=== PATIENT | male | born 2000 | race Caucasian/White ===

== ENCOUNTER 2020-09-01 09:20 | Emergency (ER) | payer BC ==
[~2020-09-01] VITALS: Ht 193 cm; Wt 194.1 kg
[2020-09-01 09:32] VITALS: BP 140/95
--- NOTE | 2020-09-01 09:51 | NUR ---
PT SWABBED FOR COVID, SAMPLE DROPPED OFF AT LAB WITH PAPERWORK Addendum: 09/01/20 at 1021 by CARLOS handed sample to pilot supervisor instead
--- NOTE | 2020-09-01 09:54 | NUR ---
DR. GAMA EVALUATING PT IN TENT
--- NOTE | 2020-09-01 09:55 | NUR ---
20/M WOKE UP THIS MORNING WITH MYALGIA, N/V, NASAL CONGESTION, CHILLS, SORE THROAT, FATIGUE, SLIGHT COUGH, AND MILD SOB. DENIES COVID POS CONTACTS. TACHYCARDIC WITH NORMAL RHYTHM, BUT APPEARS IN NO ACUTE DISTRESS. NORMAL WORK OF BREATHING. HX- DENIES NKA
--- NOTE | 2020-09-01 10:18 | NUR ---
Patient discharged with v/s stable. Written and verbal after care instructions given and explained. Patient alert, oriented and verbalized understanding of instructions. Ambulatory with steady gait. All questions addressed prior to discharge. ID band removed. Patient advised to follow up with PMD. Rx of motrin given. Patient educated on indication of medication including possible reaction and side effects. Opportunity to ask questions provided and answered. Excuse from work note and COVID iso precautions info given to pt.
[2020-09-01 10:20] VITALS: BP 140/95
--- NOTE | 2020-09-02 19:55 | NUR ---
Positive COVID-19 test results were received from lab. A copy of the test results were given to Infection Control.
== END 2020-09-01 10:18 | disposition home or self-care (01) ==
LOC: MED 09:20
DX: U07.1 COVID-19 (principal); F17.210 Nicotine dependence, cigarettes, uncomplicated
CPT/HCPCS: 99283; U0003